=== PATIENT | female | born 1995 | race Caucasian/White ===

== ENCOUNTER 2021-03-15 20:44 | Emergency (ER) | payer OTHER ==
[~2021-03-15] VITALS: Ht 165.1 cm; Wt 70.0 kg
--- NOTE | 2021-03-15 20:46 | NUR ---
PT PRESENT TO THE ED IN CUSTODY. PT PLACED ON CONTINUOUS MONITORING. OFFICER WITH PT STATED THEY WERE THERE FOR A SART EXAM, AND MEDICAL CLEARANCE. PT RESTING ON SARAN
[2021-03-15] MEDS ORDERED: ACETAMINOPHEN 325 MG TABLET PO ONE (21:30)
[2021-03-15] MEDS ORDERED: ACETAMINOPHEN 325 MG TABLET ONE (21:33)
[2021-03-15 21:42] VITALS: BP 131/92
--- NOTE | 2021-03-15 21:44 | NUR ---
Patient given discharge instructions and they have confirmed that they understand the instructions. Patient ambulatory with steady gait.
[2021-03-15] MEDS ORDERED: PLEASE ENTER ALLERGIES MC SCH (22:00)
== END 2021-03-15 21:45 | disposition home or self-care (01) ==
LOC: ED 21:00
DX: T76.21XA Adult sexual abuse, suspected, initial encounter (principal)
CPT/HCPCS: 99283